=== PATIENT | male | born 1965 | race African-American/Black ===

== ENCOUNTER 2019-10-22 02:25 | Emergency (ER) | payer MEDICAID, OTHER ==
[~2019-10-22] VITALS: Ht 180.3 cm; Wt 127.0 kg
--- NOTE | 2019-10-22 02:35 | NUR ---
PT AAOX4. [id number]. C/O DIZZYNESS X 1 MONTH. ALSO C/O GENERALIZED WEAKNESS. PT AMBULATORY WITH STEADY GAIT. RR EVEN AND UNLABORED. VSS. NO ACUTE DISTRESS NOTED. NO NEURO DEFICIT, PERRLA. AWAITING MD FOR EVAL.
[2019-10-22 03:16] LABS: BASOPHILS # (AUTO) 0.1 /CMM (0.0-0.2); BASOPHILS % (AUTO) 0.9 % (0.0-2.0); EOSINOPHILS % (AUTO) 7.3 % (0.0-6.0); HEMATOCRIT 41 % (39-51); HEMOGLOBIN 13.6 g/dL (13.5-17.5); LYMPHOCYTES # (AUTO) 3.8 /CMM (0.8-4.8); LYMPHOCYTES % (AUTO) 49.1 % (20.0-44.0); MEAN CORPUSCULAR HGB CONC 34 g/dl (31.0-36.0); MEAN CORPUSCULAR VOLUME 80 fL (80-96); MONOCYTES # (AUTO) 0.6 /CMM (0.1-1.30); MONOCYTES % (AUTO) 8.3 % (2.0-12.0); NEUTROPHILS # (AUTO) 2.7 /CMM (1.8-8.9); NEUTROPHILS % (AUTO) 34.4 % (43.0-81.0); PLATELET COUNT (AUTO) 382 /CMM (150-450); RED BLOOD CELL COUNT(AUTO) 5.08 MIL/uL (4.5-6.0); WHITE BLOOD COUNT (AUTO) 7.8 K/uL (4.3-11.0)
[2019-10-22 03:17] LABS: ABG BASE EXCESS 1.1 mmol/L; ABG OXYGEN SATURATION 90.6 % (92.0-98.5); ABG PCO2 38.6 mmHg (35.0-45.0); ABG PH 7.433 (7.350-7.450); ABG PO2 59.5 mmHg (75.0-100.0); MetHb 0.3 % (0.0-1.5); O2Hb 86.7 % (94.0-97.0); SITE, ABG Left Radial; VENT MODE, BG RA
[2019-10-22 03:19] LABS: CALCIUM, SERUM 9.6 mg/dL (8.5-10.1); CARBON DIOXIDE 32 mmol/L (21-32); CHLORIDE 100 mmol/L (98-107); GLUCOSE 111 mg/dL (74-106); POTASSIUM 3.4 mmol/L (3.5-5.1); SODIUM SERUM 137 mmol/L (136-145); UREA NITROGEN, BLOOD 14 mg/dL (7-18)
[2019-10-22] MEDS ORDERED: IV NS 0.9% 1,000 ML IV PRN (03:30)
--- NOTE | 2019-10-22 03:34 | NUR ---
Patient is resting comfortably in bed. Easily aroused. VSS.
[2019-10-22] MEDS ORDERED: DIGO125T PO (03:54)
[2019-10-22] MEDS ORDERED: CARV25TA2 PO (03:55)
[2019-10-22] MEDS ORDERED: FURO40TA5 PO (03:56)
[2019-10-22] MEDS ORDERED: RIVA10TA PO (03:56)
[2019-10-22] MEDS ORDERED: ATOR40TA PO (03:57)
[2019-10-22] MEDS ORDERED: LOSA25TA27 PO (03:58)
[2019-10-22] MEDS ORDERED: ASPI-1169 PO (04:06)
--- NOTE | 2019-10-22 04:36 | NUR ---
IV removed. Catheter intact and site benign. Pressure and 4x4 applied to site. No bleeding noted.
--- NOTE | 2019-10-22 04:50 | NUR ---
Patient discharged to home in stable condition. Written and verbal after care instructions given. Patient verbalizes understanding of instruction and RX.
--- NOTE | 2019-10-22 04:51 | NUR ---
PT REFUSED TO LEAVE THE HOSPITAL AND STATED "[facility] PT WAS TOLD TO SIT IN THE WAITING ROOM TO SPEAK TO A FEATHER EDGER. PT DENIED BEING HOMELESS WHEN ASKED. PT WAS PROVIDED WITH A TAP CARD, BUT PATIENT RESPONDED WITH "I DON'T NEED THAT SHIT, GET IT OUT OF HERE MAN." SECURITY WAS CALLED, PT THEN CALLED 911 TO MAKE A COMPLAINT REGARDING THE SITUATION. PT WAS TOLD TO WAIT FOR [employer] TO ARRIVE, BUT PATIENT THEN WALKED OUT OF THE ED. THE PATIENT WAS LEAVING THE PATIENT STATED "AY MAN, JUST WATCH"
[2019-10-22 05:15] VITALS: BP 132/73
== END 2019-10-22 05:09 | disposition home or self-care (01) ==
LOC: ER 02:26
DX: R42 Dizziness and giddiness (principal); R55 Syncope and collapse; E11.9 Type 2 diabetes mellitus without complications; Z60.2 Problems related to living alone; Z79.82 Long term (current) use of aspirin; Z79.899 Other long term (current) drug therapy
CPT/HCPCS: 36415; 36600 ×2; 71045; 80048; 82010; 82803; 84484; 85025; 93005; 96360; 99285; J7030